=== PATIENT | female | born 1960 | race Caucasian/White ===

== ENCOUNTER 2016-12-27 11:35 | Outpatient (CLI) | payer MEDICARE | END 2016-12-27 11:36 | LOC: LAB 11:35 | PROVIDERS: ATTEND Family Medicine | DX: Z53.9 Procedure and treatment not carried out, unspecified reason (principal) ==

== ENCOUNTER 2017-05-31 11:05 | Outpatient (CLI) | payer MEDICARE | END 2017-05-31 11:06 | LOC: LAB 11:05 | PROVIDERS: ATTEND Family Medicine | DX: R63.5 Abnormal weight gain (principal); R73.9 Hyperglycemia, unspecified | CPT/HCPCS: 36415; 83036; 84443 ==

== ENCOUNTER 2017-07-17 09:05 | Outpatient (CLI) | payer MEDICARE | END 2017-07-17 09:07 | LOC: LAB 09:05 | PROVIDERS: ATTEND Family Medicine | DX: R63.5 Abnormal weight gain (principal) | CPT/HCPCS: 36415; 84443 ==

== ENCOUNTER 2018-09-14 11:55 | Outpatient (CLI) | payer MEDICARE ==
--- NOTE | 2018-09-14 12:30 | Diagnostic Imaging Report ---
NIGHAT MCLEOD [facility] [id number] [facility] [address] [place] [address]. [id number] Report Submission Date: Sep 14, 2018 12:27:25 PM [employer] Patient Study Name: NORMAN BOWEN Date: Sep 14, 2018 12:02:48 PM [employer] Modality Type: DX Gender: F Description: PELVIS : 56 Institution: [facility] Physician: NIGHAT MCLEOD Examination: Plain film pelvis/hips History: 57/F PT STATES SHARP PAIN IN BOTH HIPS x1 YEAR, AND WEAKNESS IN BOTH HIPS (Hx) Comparison exams: None provided Findings: 3 views of the pelvis and hips demonstrate normal cortical margins. No fracture no dislocation. Minimal acetabular spurring. No soft tissue abnormality. Impression: No acute osseous abnormality. Electronically signed on Sep 14, 2018 12:27:25 PM [employer] by: Terry BARKSDALE
== END 2018-09-14 12:00 ==
LOC: RAD 11:55
PROVIDERS: ATTEND Physician Assistant
DX: M25.551 Pain in right hip (principal); M25.552 Pain in left hip
CPT/HCPCS: 73521